=== PATIENT | female | born 1980 | race African-American/Black ===

== ENCOUNTER 2024-09-01 14:40 | Emergency (ER) | payer MEDICAID, MEDICARE ==
[~2024-09-01] VITALS: Ht 162.6 cm; Wt 56.7 kg
[2024-09-01 14:46] VITALS: O2SAT 98
[2024-09-01] MEDS: LIDOCAINE HCL 1% 20ML VIAL INFIL ONE (19:00)
[2024-09-01] MEDS: FENTANYL CITRATE/PF 50MCG/ML 2ML VIAL IM NR (19:20)
[2024-09-01] MEDS ORDERED: DOXY100T28 MT (19:58)
[2024-09-01] MEDS ORDERED: IBUP-2029 MT (19:58)
[2024-09-01] MEDS: IBUPROFEN 600MG TABLET PO NR (20:00)
[2024-09-01 20:15] VITALS: BP 155/74; PULSE 80; RESP 18; TEMP 36.94740; O2SAT 98
== END 2024-09-01 20:15 | disposition home or self-care (01) ==
LOC: ER 14:40
DX: N76.4 Abscess of vulva (principal); M19.90 Unspecified osteoarthritis, unspecified site; Z88.8 Allergy status to other drugs, medicaments and biological substances; Z91.041 Radiographic dye allergy status
CPT/HCPCS: 99284; 56405; 96372; J3010; J3490

== ENCOUNTER 2024-09-04 14:40 | Emergency (ER) | payer MEDICAID ==
[~2024-09-04] VITALS: Ht 162.6 cm; Wt 57.0 kg
[~2024-09-04 14:40] MED LIST: DOXY100T28 MT; IBUP-2029 MT
[2024-09-04 14:43] VITALS: O2SAT 96
[2024-09-04 14:44] VITALS: BP 136/86; PULSE 90; RESP 16; TEMP 98.4; O2SAT 99
[2024-09-04] MEDS: LIDOCAINE HCL 1% 20ML VIAL INFIL ONE (18:30)
== END 2024-09-04 21:17 | disposition home or self-care (01) ==
LOC: ER 14:40
DX: Z48.00 Encounter for change or removal of nonsurgical wound dressing (principal); M19.90 Unspecified osteoarthritis, unspecified site; Z79.2 Long term (current) use of antibiotics; Z88.8 Allergy status to other drugs, medicaments and biological substances; Z90.79 Acquired absence of other genital organ(s); Z91.041 Radiographic dye allergy status; Z98.890 Other specified postprocedural states
CPT/HCPCS: 99281; J3490